=== PATIENT | female | born 1990 | race Two or more races ===

== ENCOUNTER 2025-08-20 11:09 | Emergency (ER) | payer OTHER ==
[~2025-08-20] VITALS: Ht 170.2 cm; Wt 95.3 kg
[2025-08-20] MEDS ORDERED: MORPHINE SULFATE 2 MG/ML SYRINGE IV ONE (14:45)
[2025-08-20] MEDS ORDERED: FAMOTIDINE/PF 20 MG/2 ML VIAL IV PUSH ONE (14:45)
[2025-08-20] MEDS ORDERED: FAMOTIDINE/PF 20 MG/2 ML VIAL ONE (15:17)
[2025-08-20 15:47] LABS: BASO % 0.7 % (0.1-1.2); EOS # 0.19 (0.04-0.54); EOS % 2.6 % (0.7-7.0); LYMPH # 2.20 (1.18-3.74); LYMPH % 29.6 % (19.3-53.1); MEAN PLATELET VOLUME 10.70 fl (9.4-12.4); MONO # 0.42 (0.24-0.82); MONO % 5.7 % (4.7-12.5); NEUT # 4.55 (1.56-6.13); NEUT % 61.3 % (34.0-71.1); RED CELL DISTRIBUTION WIDTH 11.9 % (11.6-14.4)
[2025-08-20 15:57] LABS: URINE APPEARANCE Clear; URINE BILIRRUBIN Negative (NEGATIVE); URINE BLOOD Trace; URINE COLOR Yellow; URINE GLUCOSE Negative (NEGATIVE); URINE KETONE Trace (NEGATIVE); URINE LEUKOCYTE Trace; URINE NITRATE Negative; URINE PROTEIN Negative (NEGATIVE); URINE UROBILINOGEN 0.2 E.U./dl
[2025-08-20 15:58] LABS: URINE EPITHELIAL CELLS 29.5 uL (0.0-38.8); URINE RBC 8.7 uL (0.0-20.8); URINE WBC 25.2 uL (0.0-23.2)
[2025-08-20 15:59] LABS: ERYTHROCYTE SEDIMENTATION RATE 6 mm/hr (0-20)
[2025-08-20 16:06] LABS: URINE CAST 0.70 uL (0.0-1.40)
[2025-08-20 16:34] LABS: ALT/SGPT 28.0 U/L (12-78); AST/SGOT 17.0 U/L (15-37); BILIRUBIN TOTAL 0.46 mg/dL (0.3-1.2); BUN CREA RATIO 15.0 (7.0-25.0); CREATININE SERUM 0.74 mg/dL (0.55-1.02); GFR 88.31; GLOBULINA 3.6 G/DL (2.4-3.5); GLUCOSE FASTING 117.0 mg/dL (65-100); OSMOLALITY SERUM 285.0 MOSM/KG (275-295)
== END 2025-08-21 03:43 | disposition home or self-care (01) ==
LOC: ER 11:10
PROVIDERS: General Practice
DX: R10.12 Left upper quadrant pain (principal); D25.2 Subserosal leiomyoma of uterus; Z88.6 Allergy status to analgesic agent; Z88.8 Allergy status to other drugs, medicaments and biological substances; Z87.09 Personal history of other diseases of the respiratory system